=== PATIENT | female | born 1930 | race Asian ===

== ENCOUNTER 2020-04-16 10:02 | Emergency (ER) | payer MEDICARE ==
[~2020-04-16] VITALS: Ht 157.5 cm; Wt 45.0 kg
--- NOTE | 2020-04-16 10:22 | NUR ---
BIB EMS, EMS STATED "SHE GOT HER 2ND COVID SHOT ON TUESDAY, PT SAID SHE IS HAVING CP AND FEELING DIZZY. FSBS 200. 96% ON 2LPM O2 NC 20 PIV RAC. HX OF HTM, DM." PT PLACED ON ROOM O2 AT 96% SR ON THE MONITOR.
--- NOTE | 2020-04-16 10:29 | NUR ---
ROOM AIR 89%. PLACED ON 2LPM N/C
[2020-04-16] MEDS ORDERED: SODIUM CHLORIDE FLUSH 10ML SYR IVF ONE (10:30)
[2020-04-16 10:41] LABS: BASOPHILS % (AUTO) 0 % (0-1); EOSINOPHILS % (AUTO) 1 % (1-7); LYMPHOCYTES % (AUTO) 9 % (22-44); MEAN CORPUSCULAR HEMOGLOBIN 30.9 pg (27.0-34.8); MEAN CORPUSCULAR HGB CONC 33.7 g/dL (32.4-35.8); MEAN PLATELET VOLUME 10.5 fL (7.4-10.4); MONOCYTES % (AUTO) 7 % (2-9); NEUTROPHILS % (AUTO) 82 % (42-75); PLATELET COUNT 97 x10^3/uL (130-400); RED BLOOD COUNT 4.47 x10^6/uL (3.82-5.3); RED CELL DISTRIBUTION WIDTH 13.4 % (9.6-15.2)
[2020-04-16 10:42] LABS: MD NO
[2020-04-16 10:48] LABS: ALBUMIN 3.6 g/dL (3.4-5.0); ANION GAP 13 mmol/L (5-15); CALCIUM 9.3 mg/dL (8.5-10.1); CHLORIDE 105 mmol/L (98-107)
[2020-04-16 10:54] LABS: ALANINE AMINOTRANSFERASE 11 U/L (12-78); ALKALINE PHOSPHATASE 111 U/L (45-117); BILIRUBIN,TOTAL 0.6 mg/dL (0.2-1.0); CREATININE 0.93 mg/dL (0.55-1.02); TROPONIN I < 0.015 ng/mL (0.000-0.045)
[2020-04-16] MEDS ORDERED: ONDANSETRON 2MG/ML, 2ML IVPush ONE (11:30)
[2020-04-16] MEDS ORDERED: ONDANSETRON 2MG/ML, 2ML ONE (11:36)
--- NOTE | 2020-04-16 11:42 | NUR ---
PT IN BED FAMILY AT , ADMIN N/ V MEDS
--- NOTE | 2020-04-16 12:00 | NUR ---
PT ON ROOM AIR
[2020-04-16 12:16] LABS: MICROSCOPIC AUTO
--- NOTE | 2020-04-16 13:30 | NUR ---
preceptor note. tech at bedside to ambulate pt. pt was able to ambulate with no dizziness and no drop in o2 saturation. provider made aware.
[2020-04-16 15:13] VITALS: BP 158/62
--- NOTE | 2020-04-16 15:14 | NUR ---
PT WALKED DOWN SINGH WITH WALKER, STEADY GAIT. DISCUSSED IF S&S WORSEN RETURN TO ER
== END 2020-04-16 15:17 | disposition home or self-care (01) ==
LOC: ED 11:41
DX: S32.010A Wedge compression fracture of first lumbar vertebra, initial encounter for closed fracture (principal); S32.020A Wedge compression fracture of second lumbar vertebra, initial encounter for closed fracture; R07.89 Other chest pain; R94.31 Abnormal electrocardiogram [ECG] [EKG]; I10 Essential (primary) hypertension; E11.9 Type 2 diabetes mellitus without complications; W01.0XXA Fall on same level from slipping, tripping and stumbling without subsequent striking against object, initial encounter; Y93.89 Activity, other specified; Y92.89 Other specified places as the place of occurrence of the external cause; Y99.8 Other external cause status
CPT/HCPCS: 36415; 71045; 72110; 73030; 80053; 81001; 84484; 85025; 93005; 96374; 99285; J2405